=== PATIENT | female | born 1960 | race Caucasian/White ===

== ENCOUNTER 2016-06-21 10:11 | Day surgery (SDC) | payer OTHER ==
[2016-06-21 11:46] VITALS: BMI 49.0
[2016-06-21] MEDS ORDERED: LIDOCAINE HCL/PF 2% SDV 5ML VIAL ONE (12:56)
[2016-06-21] MEDS ORDERED: PROPOFOL 40 ML ONE (12:56)
[2016-06-21 13:44] VITALS: TEMP 98.2
[2016-06-21 14:54] VITALS: BP 108/51; PULSE 83
== END 2016-06-21 14:35 | disposition home or self-care (01) ==
LOC: JASU-ENDO 10:11
PROVIDERS: ATTEND Internal Medicine Gastroenterology
PROC: 0DJD8ZZ Inspection of Lower Intestinal Tract, Via Natural or Artificial Opening Endoscopic (ICD-10-PCS; principal; 2016-06-21 11:00)
DX: Z86.010 Personal history of colon polyps (principal); K57.30 Diverticulosis of large intestine without perforation or abscess without bleeding